=== PATIENT | female | born 1940 | race Caucasian/White ===

== ENCOUNTER 2019-03-30 08:27 | Inpatient (IN) ==
[2019-03-30 10:04] LABS: Basophils # 0.1 10*3/uL (0.0-0.2); Basophils % 1.1 % (0.0-0.8); Eosinophils # 0.2 10*3/uL (0.0-0.87); Eosinophils % 3.9 % (0.00-10.9); Hematocrit 38.8 VOL% (35.7-47.0); Hemoglobin 11.9 GM/DL (12.0-16.0); Immature Granulocytes % 0.4 %; Immature Granulocytes Absolute 0.02 #; Lymphocytes # 1.5 10*3/uL (1.4-4.0); Lymphocytes % 25.6 % (21.3-54.2); Mean Corpuscular HGB Conc 30.7 GM/DL (32-36); Mean Platelet Volume 11.2 FL (9.6-12.0); Monocytes % 9.9 % (1.7-12.7); Neutrophils % 59.1 % (38.7-73.9); Platelet Count 289 T/CUMM (130-400); Red Blood Count 4.41 MC/CUMM (3.8-5.5); Red Cell Distribution Width 13.6 % (9.3-17.3); White Blood Count 5.7 T/CUMM (4-12)
[2019-03-30] MEDS ORDERED: ceFAZolin 1,000 MG in SYRINGE 1 EACH IV ONE (10:18)
[2019-03-30] MEDS ORDERED: ceFAZolin 1,000 MG VIAL ONE (10:45)
[2019-03-30] MEDS ORDERED: fentaNYL 100 MCG/2 ML VIAL ONE (12:06)
[2019-03-30] MEDS ORDERED: MIDAZOLAM 2 MG/2 ML VIAL ONE (12:06)
[2019-03-30] MEDS ORDERED: PROPOFOL 200 MG/20 ML VIAL IV ONE (12:06)
[2019-03-30] MEDS ORDERED: KETAMINE 500 MG/10 ML VIAL ONE (12:07)
[2019-03-30] MEDS ORDERED: ACETAMINOPHEN 325 MG TABLET PO PRN (12:19)
[2019-03-30] MEDS ORDERED: MORPHINE 4 MG/1 ML VIAL IV PRN ×2 (12:19)
[2019-03-30] MEDS ORDERED: BISACODYL 5 MG TABLET PO PRN (12:19)
[2019-03-30] MEDS ORDERED: ONDANSETRON 4 MG/2 ML VIAL IV PRN (12:19)
[2019-03-30] MEDS ORDERED: METHOCARBAMOL 500 MG TABLET PO PRN (12:26)
[2019-03-30] MEDS: PIPERACILLIN/TAZOBACTAM 3,375 MG in SODIUM CHLORIDE 0.9% 100 ML IV SCH ×2 (13:16→20:21)
[2019-03-30] MEDS: GABAPENTIN 600 MG TABLET PO SCH ×2 (15:16→20:20)
[2019-03-30] MEDS: traMADol 50 MG TABLET PO PRN ×2 (17:07→23:36)
[2019-03-30] MEDS: clonazePAM 0.5 MG TABLET PO SCH (20:20)
[2019-03-30] MEDS: ATENOLOL 25 MG TABLET PO SCH (20:20)
[2019-03-30] MEDS: SERTRALINE 25 MG TABLET PO SCH (20:20)
[2019-03-30] MEDS ORDERED: MELATONIN 3 MG TABLET PO ONE (20:52)
[2019-03-30] MEDS: LACTATED RINGERS 1,000 ML IV SCH (23:37)
[2019-03-31] MEDS: PIPERACILLIN/TAZOBACTAM 3,375 MG in SODIUM CHLORIDE 0.9% 100 ML IV SCH ×3 (04:52→20:25)
[2019-03-31] MEDS: traMADol 50 MG TABLET PO PRN ×2 (04:53→20:28)
[2019-03-31] MEDS: LEVOTHYROXINE 50 MCG TABLET PO SCH (06:13)
[2019-03-31] MEDS: ASPIRIN EC 81 MG TABLET PO SCH (08:08)
[2019-03-31] MEDS: LISINOPRIL/HCTZ 20-12.5 MG TABLET PO SCH (08:08)
[2019-03-31] MEDS: clonazePAM 0.5 MG TABLET PO SCH ×2 (08:08→20:27)
[2019-03-31] MEDS: GABAPENTIN 600 MG TABLET PO SCH ×3 (08:08→20:26)
[2019-03-31] MEDS: PANTOPRAZOLE 40 MG TABLET PO SCH (08:08)
[2019-03-31] MEDS: LACTATED RINGERS 1,000 ML IV SCH (11:24)
[2019-03-31] MEDS: NEOMYCIN/POLYMYXIN/BACITRACIN OINT 0.9 GM PACK TOP SCH (14:46)
[2019-03-31] MEDS ORDERED: MELATONIN 3 MG TABLET PO ONE (20:00)
[2019-03-31] MEDS: SERTRALINE 25 MG TABLET PO SCH (20:26)
[2019-03-31] MEDS: ATENOLOL 25 MG TABLET PO SCH (20:26)
[2019-04-01] MEDS: PIPERACILLIN/TAZOBACTAM 3,375 MG in SODIUM CHLORIDE 0.9% 100 ML IV SCH ×2 (03:44→12:30)
[2019-04-01] MEDS: LEVOTHYROXINE 50 MCG TABLET PO SCH (06:23)
[2019-04-01] MEDS: ASPIRIN EC 81 MG TABLET PO SCH (09:16)
[2019-04-01] MEDS: GABAPENTIN 600 MG TABLET PO SCH (09:17)
[2019-04-01] MEDS: PANTOPRAZOLE 40 MG TABLET PO SCH (09:17)
[2019-04-01] MEDS: clonazePAM 0.5 MG TABLET PO SCH (09:17)
[2019-04-01] MEDS: LISINOPRIL/HCTZ 20-12.5 MG TABLET PO SCH (09:17)
[2019-04-01 11:06] VITALS: BP 101/67
[2019-04-01] MEDS: NEOMYCIN/POLYMYXIN/BACITRACIN OINT 0.9 GM PACK TOP SCH (12:55)
== END 2019-04-01 14:10 | disposition home health service (06) | DRG 115 ==
LOC: N.OR 08:27 → N.SDSINP 09:23 → N.3E 12:53
PROVIDERS: ADMIT Surgery; ATTEND Surgery

== ENCOUNTER 2019-08-21 08:17 | Inpatient (IN) ==
[2019-08-21] MEDS ORDERED: HYDROmorphone 2 MG/1 ML VIAL IV STA (09:43)
[2019-08-21] MEDS ORDERED: ONDANSETRON 4 MG/2 ML VIAL IV STA (09:43)
[2019-08-21 09:49] LABS: Basophils # 0.1 10*3/uL (0.0-0.2); Basophils % 0.5 % (0.0-0.8); Eosinophils # 0.2 10*3/uL (0.0-0.87); Eosinophils % 1.8 % (0.00-10.9); Hemoglobin 10.6 GM/DL (12.0-16.0); Immature Granulocytes % 0.5 %; Immature Granulocytes Absolute 0.05 #; Lymphocytes # 2.5 10*3/uL (1.4-4.0); Lymphocytes % 22.9 % (21.3-54.2); Mean Corpuscular HGB Conc 31.2 GM/DL (32-36); Mean Corpuscular Volume 89.2 FL (87-102); Mean Platelet Volume 12.7 FL (9.6-12.0); Monocytes % 8.7 % (1.7-12.7); Neutrophils % 65.6 % (38.7-73.9); Platelet Count 237 T/CUMM (130-400); Red Blood Count 3.81 MC/CUMM (3.8-5.5); Red Cell Distribution Width 14.4 % (9.3-17.3); White Blood Count 10.9 T/CUMM (4-12)
[2019-08-21 10:01] LABS: INR 0.9; PT Patient Result 10.3 SECS (9.6-12.2); Partial Thromboplastin Time 21.7 SECS (20.8-36.0)
[2019-08-21 10:23] LABS: Calcium 8.5 MG/DL (8.5-10.1); Osmolality,Calculated 280.4 MOS/KG (273-304)
[2019-08-21] MEDS ORDERED: ACETAMINOPHEN 325 MG TABLET PO PRN (13:24)
[2019-08-21] MEDS ORDERED: PROMETHAZINE 25 MG/1 ML VIAL IM PRN (13:24)
[2019-08-21] MEDS ORDERED: METHOCARBAMOL 500 MG TABLET PO PRN (13:27)
[2019-08-21] MEDS ORDERED: SODIUM CHLORIDE 0.9% 500 ML IV STA (13:51)
[2019-08-21] MEDS: GABAPENTIN 600 MG TABLET PO SCH ×3 (15:25→21:53)
[2019-08-21] MEDS: DEXTROSE 5% NACL 0.45% 1,000 ML IV SCH (16:10)
[2019-08-21 20:28] LABS: Apearance,Urine CLEAR (Clear); Bacteria,Urine Occasional /HPF (Few); Bilirubin,Urine Negative (Negative); Blood, Urine Negative (Negative); Glucose,Urine (UA) Negative (Negative); Ketones,Urine Negative (Negative); Mucus,Urine Occasional /LPF (Occasional); Nitrite,Urine Negative (Negative); Protein,Urine Negative; RBC,Urine 1 /HPF (0-4); Squamous Epithelial Cell,Urine Occasional /HPF (0-10); Urine Color Yellow (Yellow); Urine Specific Gravity 1.017 (1.001-1.035); Urine Urobilinogen < 2.0 EU/DL (0.2-1.0); WBC,Urine <1 /HPF (0-6)
[2019-08-21] MEDS: SERTRALINE 25 MG TABLET PO SCH (21:51)
[2019-08-21] MEDS: clonazePAM 0.5 MG TABLET PO SCH (21:51)
[2019-08-21] MEDS: ATENOLOL 25 MG TABLET PO SCH (21:53)
[2019-08-21] MEDS: ONDANSETRON 4 MG/2 ML VIAL IV PRN (21:53)
[2019-08-21] MEDS: traMADol 50 MG TABLET PO PRN (23:10)
[2019-08-22 06:05] LABS: Basophils # 0.1 10*3/uL (0.0-0.2); Basophils % 0.6 % (0.0-0.8); Eosinophils # 0.5 10*3/uL (0.0-0.87); Eosinophils % 5.7 % (0.00-10.9); Hematocrit 27.7 VOL% (35.7-47.0); Immature Granulocytes % 0.5 %; Immature Granulocytes Absolute 0.04 #; Lymphocytes # 2.7 10*3/uL (1.4-4.0); Mean Corpuscular Volume 91.7 FL (87-102); Mean Platelet Volume 11.9 FL (9.6-12.0); Monocytes % 10.1 % (1.7-12.7); Neutrophils % 50.1 % (38.7-73.9); Platelet Count 237 T/CUMM (130-400); Red Cell Distribution Width 14.5 % (9.3-17.3)
[2019-08-22 06:08] LABS: Hemoglobin 8.6 GM/DL (12.0-16.0); Red Blood Count 3.02 MC/CUMM (3.8-5.5)
[2019-08-22] MEDS: DEXTROSE 5% NACL 0.45% 1,000 ML IV SCH ×2 (06:22→16:59)
[2019-08-22] MEDS ORDERED: LEVOTHYROXINE 50 MCG TABLET PO SCH (06:30)
[2019-08-22 06:35] LABS: Albumin 2.4 G/DL (3.4-5.0); Bilirubin,Total 0.7 MG/DL (0.2-1.0); Calcium 8.3 MG/DL (8.5-10.1); Osmolality,Calculated 279.4 MOS/KG (273-304); Risk Ratio 4.48; Thyroid Stimulating Hormone 5.78 uIU/ml (0.358-3.74); Total Protein 6.3 G/DL (6.4-8.3)
[2019-08-22] MEDS ORDERED: LIDOCAINE 1% 20 ML VIAL ONE (07:14)
[2019-08-22] MEDS ORDERED: BUPIVACAINE 0.25% /EPI 10 ML VIAL ONE (07:14)
[2019-08-22] MEDS ORDERED: ceFAZolin 1,000 MG VIAL ONE (08:52)
[2019-08-22] MEDS ORDERED: PROPOFOL 200 MG/20 ML VIAL IV ONE (09:19)
[2019-08-22] MEDS ORDERED: LIDOCAINE 100 MG/5 ML SYRINGE ONE (09:19)
[2019-08-22] MEDS ORDERED: fentaNYL 100 MCG/2 ML VIAL ONE (09:20)
[2019-08-22] MEDS ORDERED: KETAMINE 500 MG/10 ML VIAL ONE (09:20)
[2019-08-22] MEDS ORDERED: SODIUM CHLORIDE 0.9% 100 ML IV ONE (09:20)
[2019-08-22] MEDS: GABAPENTIN 600 MG TABLET PO SCH ×3 (10:41→20:56)
[2019-08-22] MEDS: ASPIRIN EC 81 MG TABLET PO SCH (10:42)
[2019-08-22] MEDS: PANTOPRAZOLE 40 MG TABLET PO SCH (10:42)
[2019-08-22] MEDS: clonazePAM 0.5 MG TABLET PO SCH ×2 (10:42→20:56)
[2019-08-22] MEDS: traMADol 50 MG TABLET PO PRN ×2 (10:43→18:40)
[2019-08-22] MEDS: NON-FORMULARY MEDICATION (Biotin 5,000 MCG) PO SCH (18:37)
[2019-08-22] MEDS: SERTRALINE 25 MG TABLET PO SCH (20:57)
[2019-08-22] MEDS: ATENOLOL 25 MG TABLET PO SCH (23:41)
[2019-08-23] MEDS: traMADol 50 MG TABLET PO PRN ×3 (01:40→20:35)
[2019-08-23] MEDS: DEXTROSE 5% NACL 0.45% 1,000 ML IV SCH (02:55)
[2019-08-23 05:41] LABS: Calcium 8.1 MG/DL (8.5-10.1); Osmolality,Calculated 274.7 MOS/KG (273-304)
[2019-08-23 05:56] LABS: Lymphocytes % 28.8 % (21.3-54.2); Red Cell Distribution Width 14.2 % (9.3-17.3)
[2019-08-23] MEDS: LEVOTHYROXINE 75 MCG TABLET PO SCH (06:15)
[2019-08-23 06:24] LABS: Basophils % 0.5 % (0.0-0.8); Eosinophils # 0.5 10*3/uL (0.0-0.87); Hematocrit 25.4 VOL% (35.7-47.0); Immature Granulocytes % 0.3 %; Immature Granulocytes Absolute 0.02 #; Lymphocytes # 2.2 10*3/uL (1.4-4.0); Mean Corpuscular HGB Conc 31.1 GM/DL (32-36); Mean Corpuscular Volume 90.4 FL (87-102); Mean Platelet Volume 12.1 FL (9.6-12.0); Monocytes % 12.3 % (1.7-12.7); Neutrophils % 51.1 % (38.7-73.9); Platelet Count 201 T/CUMM (130-400); Red Blood Count 2.81 MC/CUMM (3.8-5.5); White Blood Count 7.5 T/CUMM (4-12)
[2019-08-23 06:25] LABS: Hemoglobin 7.9 GM/DL (12.0-16.0)
[2019-08-23] MEDS ORDERED: SODIUM CHLORIDE 0.9% 1,000 ML IV PRN (08:17)
[2019-08-23] MEDS: clonazePAM 0.5 MG TABLET PO SCH ×2 (09:07→20:35)
[2019-08-23] MEDS: PANTOPRAZOLE 40 MG TABLET PO SCH (09:07)
[2019-08-23] MEDS: ASPIRIN EC 81 MG TABLET PO SCH (09:07)
[2019-08-23] MEDS: GABAPENTIN 600 MG TABLET PO SCH (09:07)
[2019-08-23] MEDS: NON-FORMULARY MEDICATION (Biotin 5,000 MCG) PO SCH (09:08)
[2019-08-23] MEDS: Mirabegron [Myrbetriq] 25 MG PO SCH (09:10)
[2019-08-23] MEDS ORDERED: ACETAMINOPHEN 325 MG TABLET PO PRN (10:46)
[2019-08-23] MEDS ORDERED: IBUPROFEN 400 MG TABLET PO PRN (10:48)
[2019-08-23] MEDS: ACETAMINOPHEN 500 MG TABLET PO ONE ×2 (13:17→14:09)
[2019-08-23] MEDS: GABAPENTIN 300 MG CAPSULE PO SCH ×2 (15:13→20:34)
[2019-08-23] MEDS: ONDANSETRON 4 MG/2 ML VIAL IV PRN (15:13)
[2019-08-23] MEDS ORDERED: LACTULOSE 20 GM/30 ML UDCUP PO ONE (18:04)
[2019-08-23 18:16] LABS: Hematocrit 29.7 VOL% (35.7-47.0); Hemoglobin 9.4 GM/DL (12.0-16.0)
[2019-08-23] MEDS: SERTRALINE 25 MG TABLET PO SCH (20:34)
[2019-08-23] MEDS: ATENOLOL 25 MG TABLET PO SCH (21:57)
[2019-08-24 05:00] LABS: Basophils # 0.1 10*3/uL (0.0-0.2); Basophils % 0.7 % (0.0-0.8); Eosinophils # 0.4 10*3/uL (0.0-0.87); Eosinophils % 6.6 % (0.00-10.9); Hematocrit 29.9 VOL% (35.7-47.0); Hemoglobin 9.4 GM/DL (12.0-16.0); Immature Granulocytes % 0.4 %; Immature Granulocytes Absolute 0.03 #; Lymphocytes # 1.4 10*3/uL (1.4-4.0); Lymphocytes % 20.6 % (21.3-54.2); Mean Corpuscular HGB Conc 31.4 GM/DL (32-36); Mean Corpuscular Volume 90.6 FL (87-102); Mean Platelet Volume 11.6 FL (9.6-12.0); Monocytes % 9.1 % (1.7-12.7); Neutrophils % 62.6 % (38.7-73.9); Platelet Count 199 T/CUMM (130-400); Red Cell Distribution Width 14.1 % (9.3-17.3); White Blood Count 6.7 T/CUMM (4-12)
[2019-08-24] MEDS: LEVOTHYROXINE 75 MCG TABLET PO SCH (06:16)
[2019-08-24] MEDS: PANTOPRAZOLE 40 MG TABLET PO SCH (08:48)
[2019-08-24] MEDS: clonazePAM 0.5 MG TABLET PO SCH (08:48)
[2019-08-24] MEDS: ASPIRIN EC 81 MG TABLET PO SCH (08:48)
[2019-08-24] MEDS: GABAPENTIN 300 MG CAPSULE PO SCH (08:49)
[2019-08-24] MEDS: Mirabegron [Myrbetriq] 25 MG PO SCH (08:50)
[2019-08-24] MEDS: NON-FORMULARY MEDICATION (Biotin 5,000 MCG) PO SCH (08:50)
[2019-08-24] MEDS: traMADol 50 MG TABLET PO PRN (08:52)
[2019-08-24] MEDS ORDERED: LACTULOSE 20 GM/30 ML UDCUP PO PRN (09:00)
[2019-08-24 11:34] VITALS: BP 142/85
[2019-08-25] MEDS ORDERED: LEVOTHYROXINE 50 MCG TABLET PO SCH (06:30)
== END 2019-08-24 11:59 | disposition home health service (06) | DRG 605 ==
LOC: EDUNIT# → EDBD → N.ED 08:17 → N.EDINP 13:24 → N.2E 14:19
PROVIDERS: ADMIT Internal Medicine; ATTEND Internal Medicine

== ENCOUNTER 2019-11-22 20:33 | Inpatient (IN) ==
[2019-11-22 21:52] LABS: Basophils % 0.6 % (0.0-0.8); Eosinophils # 0.2 10*3/uL (0.0-0.87); Eosinophils % 2.4 % (0.00-10.9); Hematocrit 36.6 VOL% (35.7-47.0); Immature Granulocytes % 0.2 %; Immature Granulocytes Absolute 0.01 #; Lymphocytes # 1.1 10*3/uL (1.4-4.0); Lymphocytes % 17.1 % (21.3-54.2); Mean Corpuscular HGB Conc 30.1 GM/DL (32-36); Mean Corpuscular Volume 82.1 FL (87-102); Mean Platelet Volume 11.4 FL (9.6-12.0); Monocytes % 12.6 % (1.7-12.7); Neutrophils % 67.1 % (38.7-73.9); Platelet Count 194 T/CUMM (130-400); Red Blood Count 4.46 MC/CUMM (3.8-5.5); Red Cell Distribution Width 14.7 % (9.3-17.3); White Blood Count 6.2 T/CUMM (4-12)
[2019-11-22 22:10] LABS: Albumin 3.4 G/DL (3.4-5.0); Bilirubin,Total 0.8 MG/DL (0.2-1.0); Calcium 9.4 MG/DL (8.5-10.1); Osmolality,Calculated 279.5 MOS/KG (273-304); Total Protein 9.1 G/DL (6.4-8.3)
[2019-11-22] MEDS ORDERED: DICYCLOMINE 20 MG/2 ML AMP IM ONE (22:59)
[2019-11-22] MEDS ORDERED: ONDANSETRON 4 MG/2 ML VIAL IM STA (22:59)
[2019-11-22] MEDS ORDERED: SODIUM CHLORIDE 0.9% 500 ML IV STA (23:20)
[2019-11-22] MEDS ORDERED: FAMOTIDINE 20 MG/2 ML VIAL IV STA (23:20)
[2019-11-23] MEDS ORDERED: cefTRIAXone 1,000 MG in SODIUM CHLORIDE 0.9% 100 ML IV STA (00:21)
[2019-11-23] MEDS ORDERED: ONDANSETRON 4 MG/2 ML VIAL IV PRN (00:50)
[2019-11-23] MEDS ORDERED: NICOTINE 21 MG/24 HR PATCH TRANSDERM PRN (00:50)
[2019-11-23] MEDS ORDERED: MEPERIDINE 25 MG/1 ML VIAL IV PRN (01:22)
[2019-11-23] MEDS: FAMOTIDINE 20 MG/2 ML VIAL IV SCH (02:44)
[2019-11-23] MEDS: SODIUM CHLORIDE 0.9% 1,000 ML IV SCH ×2 (02:52→11:38)
[2019-11-23] MEDS: MORPHINE 4 MG/1 ML VIAL IV PRN ×3 (03:14→12:11)
[2019-11-23] MEDS ORDERED: INFLUENZA VIRUS VACCINE 0.5 ML SYRINGE IM ONE (03:46)
[2019-11-23 04:46] LABS: Basophils % 0.8 % (0.0-0.8); Eosinophils # 0.1 10*3/uL (0.0-0.87); Eosinophils % 2.3 % (0.00-10.9); Hematocrit 31.6 VOL% (35.7-47.0); Hemoglobin 9.6 GM/DL (12.0-16.0); Immature Granulocytes % 0.2 %; Immature Granulocytes Absolute 0.01 #; Lymphocytes # 0.7 10*3/uL (1.4-4.0); Lymphocytes % 13.2 % (21.3-54.2); Mean Corpuscular HGB Conc 30.4 GM/DL (32-36); Mean Corpuscular Volume 81.9 FL (87-102); Mean Platelet Volume 11.8 FL (9.6-12.0); Monocytes % 15.1 % (1.7-12.7); Neutrophils % 68.4 % (38.7-73.9); Platelet Count 154 T/CUMM (130-400); Red Blood Count 3.86 MC/CUMM (3.8-5.5); Red Cell Distribution Width 14.8 % (9.3-17.3); White Blood Count 5.3 T/CUMM (4-12)
[2019-11-23 05:12] LABS: Calcium 8.3 MG/DL (8.5-10.1); Osmolality,Calculated 285.1 MOS/KG (273-304)
[2019-11-23 05:50] LABS: Cancer Antigen 19-9 172.4 U/ML (0-37); Carcinoembryonic Antigen 0.9 NG/ML (0.0-5.0)
[2019-11-23 06:01] LABS: Hepatitis B Core IgM Quant < 0.05 Index; Hepatitis B Surface Ab Result Negative; Hepatitis B Surface Ag Quant < 0.10 Index; Hepatitis B Surface Ag Result Negative (Negative); Hepatitis C Virus Ab Quant > 11.00 Index; Hepatitis C Virus Ab Result Positive (Negative)
[2019-11-23] MEDS: POTASSIUM CHLORIDE 20 MEQ TABLET PO SCH ×2 (11:37→13:08)
[2019-11-23] MEDS: LORazepam 1 MG TABLET PO PRN (13:25)
[2019-11-23] MEDS: ENOXAPARIN 60 MG/0.6 ML SYRINGE SUBCUT SCH (15:11)
[2019-11-23] MEDS ORDERED: LORazepam 2 MG/1 ML VIAL IV ONE (23:32)
[2019-11-24] MEDS ORDERED: cefTRIAXone 1,000 MG in SYRINGE 1 EACH IV SCH (01:00)
[2019-11-24] MEDS: ENOXAPARIN 60 MG/0.6 ML SYRINGE SUBCUT SCH ×2 (02:04→15:37)
[2019-11-24] MEDS: SODIUM CHLORIDE 0.9% 1,000 ML IV SCH ×2 (02:04→10:19)
[2019-11-24] MEDS: FAMOTIDINE 20 MG/2 ML VIAL IV SCH (02:04)
[2019-11-24 04:34] LABS: Apearance,Urine CLEAR (Clear); Bilirubin,Urine Negative (Negative); Blood, Urine Negative (Negative); Glucose,Urine (UA) Negative (Negative); Ketones,Urine 20 mg/dL (Negative); Mucus,Urine Occasional /LPF (Occasional); Nitrite,Urine Negative (Negative); Protein,Urine Negative; RBC,Urine 1 /HPF (0-4); Squamous Epithelial Cell,Urine Occasional /HPF (0-10); Urine Color Yellow (Yellow); Urine Specific Gravity 1.014 (1.001-1.035); Urine Urobilinogen < 2.0 EU/DL (0.2-1.0); WBC,Urine 1 /HPF (0-6)
[2019-11-24] MEDS ORDERED: fentaNYL 50 MCG/HR PATCH TRANSDERM SCH (11:00)
[2019-11-24] MEDS: LORazepam 1 MG TABLET PO PRN ×2 (15:37→21:39)
[2019-11-25] MEDS: HYDROmorphone 2 MG/1 ML VIAL IV PRN ×4 (00:41→21:45)
[2019-11-25] MEDS: ENOXAPARIN 60 MG/0.6 ML SYRINGE SUBCUT SCH ×2 (03:29→15:47)
[2019-11-25] MEDS: FAMOTIDINE 20 MG/2 ML VIAL IV SCH (03:29)
[2019-11-25] MEDS: LORazepam 1 MG TABLET PO PRN (03:31)
[2019-11-26] MEDS: ENOXAPARIN 60 MG/0.6 ML SYRINGE SUBCUT SCH (02:42)
[2019-11-26] MEDS: FAMOTIDINE 20 MG/2 ML VIAL IV SCH (02:43)
[2019-11-26] MEDS: HYDROmorphone 2 MG/1 ML VIAL IV PRN (06:33)
[2019-11-26 08:31] VITALS: BP 170/117
[2019-11-26] MEDS: LORazepam 1 MG TABLET PO PRN (10:48)
== END 2019-11-26 11:15 | disposition hospice, home (50) | DRG 435 ==
LOC: N.ED 20:33 → N.EDINP 11-23 00:50 → SUATTDRO 11-23 00:50 → N.EDINP 11-23 02:02 → N.4E 11-23 02:19
PROVIDERS: ADMIT Internal Medicine Cardiovascular Disease; ATTEND Internal Medicine